=== PATIENT | male | born 1985 | race Caucasian/White ===

== ENCOUNTER 2022-06-30 18:39 | Emergency (ER) | payer OTHER ==
[~2022-06-30] VITALS: Ht 175.3 cm; Wt 68.0 kg
[2022-06-30 18:47] VITALS: BP 136/68
--- NOTE | 2022-06-30 18:53 | NUR ---
5TH DIGIT,RIGHT HAND LACERATION,SUSTAINED AT HOME SLICING CUCUMBER
[2022-06-30] MEDS ORDERED: TDAP [DIPH/PERTUSSIS/TET] 0.5 ML VIAL IM ONE ×2 (18:56→19:00)
--- NOTE | 2022-06-30 19:49 | NUR ---
Patient discharged to home in stable condition. Written and verbal after care instructions given. Patient verbalizes understanding of instruction.
== END 2022-06-30 19:49 | disposition home or self-care (01) ==
LOC: ER 18:42
DX: S61.216A Laceration without foreign body of right little finger without damage to nail, initial encounter (principal); W26.8XXA Contact with other sharp object(s), not elsewhere classified, initial encounter; Y93.89 Activity, other specified; Y92.89 Other specified places as the place of occurrence of the external cause; Y99.8 Other external cause status
CPT/HCPCS: 99283; 12001; 90471; 90715; A6403